=== PATIENT | male | born 1975 | race Caucasian/White ===

== ENCOUNTER 2016-09-07 16:29 | Emergency (ER) | payer SELFPAY ==
[~2016-09-07] VITALS: Wt 87.0 kg
[~2016-09-07 16:29] MED LIST: CHLO25CA9 PO; RANI150T9 PO
[2016-09-07] MEDS ORDERED: FAMOTIDINE 20 MG INJ IV STA (17:03)
[2016-09-07] MEDS ORDERED: SOD CHLORIDE 0.9% 1,000 ML IV STA (17:03)
[2016-09-07] MEDS ORDERED: ONDANSETRON 4 MG INJ IV STA (17:03)
[2016-09-07 17:16] LABS: ADD SCAN DIFF NO
[2016-09-07 17:20] LABS: BASOPHILS % 0.7 % (0.0-2.0); EOSINOPHILS # 0.1 10^3/ul (0.0-0.5); EOSINOPHILS % 2.6 % (0.0-7.0); HEMATOCRIT 47.4 % (42.0-52.0); HEMOGLOBIN 16.2 g/dl (14.0-18.0); LYMPHOCYTES # 1.1 10^3/ul (0.8-2.9); LYMPHOCYTES % 25.4 % (15.0-51.0); MEAN CORPUSCULAR HEMOGLOBIN 27.9 pg (29.0-33.0); MEAN CORPUSCULAR HGB CONC 34.2 g/dl (32.0-37.0); MEAN CORPUSCULAR VOLUME 81.7 fl (82.0-101.0); MEAN PLATELET VOLUME 10.9 fl (7.4-10.4); MONOCYTE # 0.3 10^3/ul (0.3-0.9); MONOCYTES % 6.7 % (0.0-11.0); NEUTROPHIL # 2.7 10^3/ul (1.6-7.5); NEUTROPHILS % 64.6 % (39.0-77.0); PLATELET COUNT 266 10^3/UL (140-415); RED CELL DISTRIBUTION WIDTH 13.3 % (11.5-14.5); WHITE BLOOD COUNT 4.2 10^3/ul (4.8-10.8)
[2016-09-07] MEDS ORDERED: LORAZEPAM 2 MG INJ IV ONE (17:30)
[2016-09-07 17:34] LABS: ALBUMIN 5.3 g/dl (3.3-4.9)
[2016-09-07 17:35] LABS: POTASSIUM 3.5 mmol/L (3.5-5.1)
[2016-09-07 17:37] LABS: CREATININE 0.88 mg/dl (0.61-1.24)
[2016-09-07 17:38] LABS: ALBUMIN/GLOBULIN RATIO 1.43; CALCIUM 10.7 mg/dl (8.4-10.2)
[2016-09-07] MEDS ORDERED: ONDA8TAB14 PO (17:56)
[2016-09-07] MEDS ORDERED: PANT40TA3 PO (17:56)
[2016-09-07] MEDS ORDERED: LORA1TAB PO (17:58)
--- NOTE | 2016-09-07 18:05 | ERD ---
ER Documentation Chief Complaint Date/Time DATE: 09/07/16 TIME: 18:02 Chief Complaint VOMITING SINCE THIS MORNING; STATES HE HAS BEEN DRINKING HEAVILY THIS WEEK HPI This 41-year-old male presents with vomiting since this morning he also has epigastric abdominal pain. Patient has several visits here for alcohol withdrawal gastritis. Denies any fevers, blood, lower abdominal pain. She has been drinking appear for approximately 4 days with minimal food intake. He denies history of seizures. Denies hallucinations, suicidal or homicidal ideations ROS All systems reviewed and are negative except as per history of present illness. Medications Home Meds Active Scripts Lorazepam* (Lorazepam*) 1 Mg Tablet, 1 MG PO Q8, #6 TAB Prov:ATILIO DOE MD 09/07/16 Pantoprazole* (Protonix*) 40 Mg Tablet.dr, 40 MG PO DAILY, #30 TAB Prov:ATILIO DOE MD 09/07/16 Ondansetron (Ondansetron Odt) 8 Mg Tab.rapdis, 8 MG PO Q6H Y for NAUSEA AND/OR VOMITING, #8 TAB Prov:ATILIO DOE MD 09/07/16 Chlordiazepoxide* (Chlordiazepoxide*) 25 Mg Capsule, 25 MG PO Q8 for 6 Days, CAP 50mg PO BID x 2 days 25mg PO BID x 2 days 25mg PO Daily x 2 days THEN STOP Prov:MAYO BAZAN MD 06/08/16 Ranitidine Hcl* (Zantac*) 150 Mg Tablet, 150 MG PO BID Y for EPIGASTRIC PAIN, # 30 TAB Prov:MARGO KNIGHT 05/14/16 Allergies Allergies: Coded Allergies: No Known Allergy (Unverified , 06/08/16) PMhx/Soc Medical and Surgical Hx: pt denies Medical Hx, pt denies Surgical Hx History of Surgery: No Anesthesia Reaction: No Hx Neurological Disorder: Yes Hx Respiratory Disorders: No Hx Cardiac Disorders: No Hx Psychiatric Problems: Yes Hx Miscellaneous Medical Probl: Yes (gastritis ) Hx Alcohol Use: Yes (DAILY, STOPPED FOR 4MTHS) Hx Substance Use: Yes (marijuana) Hx Tobacco Use: No Physical Exam Vitals Vital Signs Date Time Temp Pulse Resp B/P Pulse Ox O2 Delivery O2 Flow Rate FiO2 09/07/16 16:42 99.1 141 18 171/108 96 Physical Exam Const: [] Alert, no apparent distress per Head: Atraumatic Eyes: Normal Conjunctiva ENT: Normal External Ears, Nose and Mouth. Neck: Full range of motion..~ No meningismus. Resp: Clear to auscultation bilaterally Cardio: Regular rate and rhythm, no murmurs Abd: Soft, mild epigastric tenderness. No rebound and no tenderness at McBurney's point no Juares sign., non distended. Normal bowel sounds Skin: No petechiae or rashes Back: No midline or flank tenderness Ext: No cyanosis, or edema Neur: Awake and alert Psych: Normal Mood and Affect Result Diagram: 09/07/16170409/07/161704 Results 24 hrs Laboratory Tests Test 09/07/16 17:05 White Blood Count 4.210^3/ul Red Blood Count 5.8010^6/ul Hemoglobin 16.2g/dl Hematocrit 47.4% Mean Corpuscular Volume 81.7fl Mean Corpuscular Hemoglobin 27.9pg Mean Corpuscular Hemoglobin Concent 34.2g/dl Red Cell Distribution Width 13.3% Platelet Count 33519^3/UL Mean Platelet Volume 10.9fl Neutrophils % 64.6% Lymphocytes % 25.4% Monocytes % 6.7% Eosinophils % 2.6% Basophils % 0.7% Nucleated Red Blood Cells % 0.0/100WBC Neutrophils # 2.710^3/ul Lymphocytes # 1.110^3/ul Monocytes # 0.310^3/ul Eosinophils # 0.110^3/ul Basophils # 0.010^3/ul Nucleated Red Blood Cells # 0.010^3/ul Sodium Level 138mmol/L Potassium Level 3.5mmol/L Chloride Level 97mmol/L Carbon Dioxide Level 25mmol/L Anion Gap 20 Blood Urea Nitrogen 10mg/dl Creatinine 0.88mg/dl Glucose Level 232mg/dl Calcium Level 10.7mg/dl Total Bilirubin 1.0mg/dl Direct Bilirubin 0.00mg/dl Indirect Bilirubin 1.0mg/dl Aspartate Amino Transf (AST/SGOT) 51IU/L Alanine Aminotransferase (ALT/SGPT) 48IU/L Alkaline Phosphatase 100IU/L Total Protein 9.0g/dl Albumin 5.3g/dl Globulin 3.70g/dl Albumin/Globulin Ratio 1.43 Lipase 51U/L Current Medications Medications (Trade) Dose Ordered Sig/Marisol Route PRN Reason Start Time Stop Time Status Last Admin Dose Admin Sodium Chloride (NS) 1,000 ml @ 1,000 mls/hr Q1H STAT IV 09/07/16 17:03 09/07/16 18:02 09/07/16 17:11 Ondansetron HCl (Zofran Inj) 4 mg ONCE STAT IV 09/07/16 17:03 09/07/16 17:05 DC 09/07/16 17:10 Famotidine (Pepcid Iv) 20 mg ONCE STAT IV 09/07/16 17:03 09/07/16 17:05 DC 09/07/16 17:10 Lorazepam (Ativan) 1 mg ONCE ONCE IV 09/07/16 17:30 09/07/16 17:31 DC 09/07/16 17:11 Procedures/MDM CBC shows a white blood cell count of 4.2, otherwise normal. CMP normal and lipase normal except for glucose of 232. Patient was given Zofran 4 mg IV, 1 L normal saline IV and Ativan 1 mg IV. Patient had minimal epigastric tenderness on serial exam. Patient was also given Pepcid 20 mg IV. Patient presents with signs and symptoms of acute alcohol withdrawal and vomiting signs of hyperglycemia consistent with early onset diabetes. He will be treated with instructions to discontinue alcohol use, drink plenty fluids, and was discharged home a short course of Zofran and Protonix and a few Ativan. Patient was referred to local [facility] for recheck of blood sugar further evaluation and management. We will defer initiating treatment for now. Patient has no signs or symptoms of ketoacidosis and his bicarb is normal. No evidence of acute abdomen, or delirium tremens. The patient was stable with no new complaints during the ER course. Clinically, there is no current evidence to suggest meningitis, sepsis, acute abdomen, pneumonia, acute coronary syndrome, pulmonary embolism, or any other emergent condition appearing to require further evaluation or hospitalization. The patient should certainly return for any new or worsening symptoms per the aftercare instructions. They should otherwise follow-up with her primary care doctor for reevaluation this week. Departure Diagnosis: Primary Impression: Hyperglycemia Additional Impression: Alcohol withdrawal Complication of substance-induced condition: uncomplicated Qualified Code: F10.230 - Alcohol withdrawal, uncomplicated Condition: Stable Patient Instructions: Hyperglycemia (High Blood Sugar), Alcohol Withdrawal [facility] Usted se goodman hecho un examen mdico de control que le indica que no est en lynne condicin que requiera tratamiento urgente en el Departamento de Emergencia. Un estudio ms profundo y el tratamiento de monique condicin pueden esperar sin ningn riesgo hasta que usted sea atendida/o en el consultorio de monique mdico o lynne cl bhumika. Es responsabilidad suya arreglar lynne kristian para el seguimiento del verito. MANEJO DE CONDICIONES NO URGENTES EN EL FUTURO 1) Si usted tiene un mdico de atencin primaria: Usted debera llamar a monique mdico de atencin primaria antes de venir al departamento de emergencia. Despus de las horas de consultorio, monique doctor o monique asociado/a est disponible por telfono. El mdico o enfermero de hanna en el servicio telefnico puede asesorarle por quiana medio para atender el problema, o verito contrario se puede programar lynne kristian. 2) Si usted no tiene un mdico de atencin primaria: Llame al mdico o clnica de referencia que aparece abajo joelle las horas de consultorio para hacer lynne kristian para que le vean. CLINICAS: [facility] [phone] [facility] [phone] [facility] [phone] [address] [facility]. [facility] [phone] [address] [facility] [facility] [phone] [address] [facility]. [phone] [address] Additional Instructions: Labs show likely early diabetes. Recheck with primary doctor for further testing and treatment. Recheck for new or worsening symptoms for ATILIO DOE MD Sep 07, 2016 18:05
[2016-09-07 18:36] VITALS: BP 151/92; PULSE 92; RESP 18; TEMP 98.8
== END 2016-09-07 18:35 | disposition home or self-care (01) ==
LOC: FTE 16:29
DX: R73.9 Hyperglycemia, unspecified (principal); F10.230 Alcohol dependence with withdrawal, uncomplicated
CPT/HCPCS: 36415; 80053; 83690; 85025; 96374; 96375; 99284; J2060; J2405; J7030

== ENCOUNTER 2016-10-02 21:08 | Emergency (ER) | payer SELFPAY ==
[~2016-10-02] VITALS: Ht 162.6 cm; Wt 78.5 kg
[~2016-10-02 21:08] MED LIST changes: +LORA1TAB PO; +ONDA8TAB14 PO; +PANT40TA3 PO
[2016-10-02 21:11] VITALS: Ht 162.6 cm; Wt 78.5 kg
[2016-10-02] MEDS ORDERED: FAMOTIDINE 20 MG INJ IV STA (23:39)
[2016-10-02] MEDS ORDERED: SOD CHLORIDE 0.9% 1,000 ML IV STA (23:39)
[2016-10-03] MEDS ORDERED: LORAZEPAM 2 MG INJ IV ONE
[2016-10-03] MEDS ORDERED: THIAMINE 100 MG TAB PO ONE
[2016-10-03] MEDS ORDERED: FOLIC ACID 1 MG TAB PO ONE
[2016-10-03 00:05] LABS: ADD SCAN DIFF NO
[2016-10-03 00:11] LABS: BASOPHILS % 0.4 % (0.0-2.0); EOSINOPHILS # 0.1 10^3/ul (0.0-0.5); HEMOGLOBIN 16.5 g/dl (14.0-18.0); LYMPHOCYTES # 2.6 10^3/ul (0.8-2.9); LYMPHOCYTES % 56.7 % (15.0-51.0); MEAN CORPUSCULAR HEMOGLOBIN 27.6 pg (29.0-33.0); MEAN CORPUSCULAR HGB CONC 33.7 g/dl (32.0-37.0); MEAN CORPUSCULAR VOLUME 81.9 fl (82.0-101.0); MEAN PLATELET VOLUME 11.4 fl (7.4-10.4); MONOCYTE # 0.3 10^3/ul (0.3-0.9); MONOCYTES % 6.2 % (0.0-11.0); NEUTROPHIL # 1.6 10^3/ul (1.6-7.5); NEUTROPHILS % 34.5 % (39.0-77.0); PLATELET COUNT 279 10^3/UL (140-415); RED BLOOD COUNT 5.98 10^6/ul (4.70-6.10); RED CELL DISTRIBUTION WIDTH 13.4 % (11.5-14.5); WHITE BLOOD COUNT 4.6 10^3/ul (4.8-10.8)
[2016-10-03 00:31] LABS: ALBUMIN 4.9 g/dl (3.3-4.9); ALBUMIN/GLOBULIN RATIO 1.25; BILIRUBIN,INDIRECT 0.4 mg/dl (0-1.1); BILIRUBIN,TOTAL 0.4 mg/dl (0.2-1.3); CALCIUM 9.3 mg/dl (8.4-10.2); CREATININE 0.84 mg/dl (0.61-1.24); POTASSIUM 3.9 mmol/L (3.5-5.1); TOTAL PROTEIN 8.8 g/dl (6.1-8.1)
--- NOTE | 2016-10-03 00:54 | RADRPT ---
PROCEDURE: CT Brain without contrast. CLINICAL INDICATION: Trauma TECHNIQUE: A CT of the brain was performed utilizing axial imaging from the skull base through the vertex without IV contrast. Multiplanar reformatted images were made. Images were reviewed on a [employer] workstation. The CTDIvol is 45.01 mGy and the DLP is 720.23 mGycm. One or more the following dose reduction techniques were utilized: Automated exposure control, adjus tment of the mA/ or kV according to patient's size, or use of iterative reconstruction technique. COMPARISON: None FINDINGS: There is no intracranial hemorrhage, mass effect, or midline shift. No extra-axial fluid collection is seen. The ventricles and sulci are normal in size and configuration. The density of the brain is normal, and the denny white matter differentiation appears well-preserved. The visualized paranasal sinuses and osseous structures are grossly unremarkable. IMPRESSION: 1. No evidence of acute intracranial pathology. 2. The brain is normal in appearance. RPTAT: HJES .Patricio Loera MD, MD Date Time Electronically viewed and signed by .Patricio Loera MD, MD on 10/03/2016 00:54 .S/
[2016-10-03] MEDS ORDERED: FAMO-18 PO (01:10)
--- NOTE | 2016-10-03 01:15 | ERD ---
ER Documentation Chief Complaint Date/Time DATE: 10/03/16 TIME: 01:13 Chief Complaint etoh intoxication, vomiting, headache HPI 41-year-old male. The patient states that he has been binge drinking for approximately 1-2 weeks. His last drink was 9 AM this morning. He is describing 1-2 episodes of nonbloody nonbilious emesis, shaking, mild headache. He describes mild epigastric abdominal discomfort. No diarrhea, no hematemesis, no melena. He is unsure if he is fallen or hit his head but does have old contusion to the forehead. ROS All systems reviewed and are negative except as per history of present illness. Medications Home Meds Active Scripts Famotidine* (Pepcid*) 20 Mg Tablet, 20 MG PO BID for 4 Days, TAB Prov:MAYO BAZAN MD 10/03/16 Lorazepam* (Lorazepam*) 1 Mg Tablet, 1 MG PO Q8, #6 TAB Prov:ATILIO DOE MD 09/07/16 Pantoprazole* (Protonix*) 40 Mg Tablet.dr, 40 MG PO DAILY, #30 TAB Prov:ATILIO DOE MD 09/07/16 Ondansetron (Ondansetron Odt) 8 Mg Tab.rapdis, 8 MG PO Q6H Y for NAUSEA AND/OR VOMITING, #8 TAB Prov:ATILIO DOE MD 09/07/16 Chlordiazepoxide* (Chlordiazepoxide*) 25 Mg Capsule, 25 MG PO Q8 for 6 Days, CAP 50mg PO BID x 2 days 25mg PO BID x 2 days 25mg PO Daily x 2 days THEN STOP Prov:MAYO BAZAN MD 06/08/16 Ranitidine Hcl* (Zantac*) 150 Mg Tablet, 150 MG PO BID Y for EPIGASTRIC PAIN, # 30 TAB Prov:MARGO KNIGHT 05/14/16 Allergies Allergies: Coded Allergies: No Known Allergy (Unverified , 06/08/16) PMhx/Soc History of Surgery: No Anesthesia Reaction: No Hx Neurological Disorder: Yes Hx Respiratory Disorders: No Hx Cardiac Disorders: Yes (HTN) Hx Psychiatric Problems: Yes Hx Miscellaneous Medical Probl: Yes (gastritis ) Hx Alcohol Use: Yes (DAILY FOR 1 WEEK 10/02/16) Hx Substance Use: Yes (marijuana) Hx Tobacco Use: No Smoking Status: Never smoker FmHx Family History: No diabetes Physical Exam Vitals Vital Signs Date Time Temp Pulse Resp B/P Pulse Ox O2 Delivery O2 Flow Rate FiO2 10/02/16 23:56 103 17 138/81 96 Room Air 10/02/16 21:11 98.3 110 20 168/93 97 Physical Exam General: Disheveled, smells of alcohol Head: Old contusion to forehead Eyes: Pupils equally reactive, EOM intact ENT: Moist mucous membranes Neck: Supple, no lymphadenopathy Respiratory: Lungs clear bilaterally, no distress Cardiovascular: RRR, no murmurs, rubs, or gallops Abdominal: Soft, non-tender, non-distended, no peritoneal signs : Deferred MSK: No edema, no unilateral swelling, 5/5 strength Neurologic: Alert and oriented, moving all extremities, normal speech, no focal weakness, no cerebellar signs, slight tremor Skin: No rash Psych: Normal mood Result Diagram: 10/02/16 2350 10/02/16 2350 Results 24 hrs Laboratory Tests Test 10/02/16 23:50 White Blood Count 4.610^3/ul Red Blood Count 5.9810^6/ul Hemoglobin 16.5g/dl Hematocrit 49.0% Mean Corpuscular Volume 81.9fl Mean Corpuscular Hemoglobin 27.6pg Mean Corpuscular Hemoglobin Concent 33.7g/dl Red Cell Distribution Width 13.4% Platelet Count 31181^3/UL Mean Platelet Volume 11.4fl Neutrophils % 34.5% Lymphocytes % 56.7% Monocytes % 6.2% Eosinophils % 2.0% Basophils % 0.4% Nucleated Red Blood Cells % 0.0/100WBC Neutrophils # 1.610^3/ul Lymphocytes # 2.610^3/ul Monocytes # 0.310^3/ul Eosinophils # 0.110^3/ul Basophils # 0.010^3/ul Nucleated Red Blood Cells # 0.010^3/ul Sodium Level 144mmol/L Potassium Level 3.9mmol/L Chloride Level 106mmol/L Carbon Dioxide Level 23mmol/L Anion Gap 19 Blood Urea Nitrogen 9mg/dl Creatinine 0.84mg/dl Glucose Level 113mg/dl Calcium Level 9.3mg/dl Total Bilirubin 0.4mg/dl Direct Bilirubin 0.00mg/dl Indirect Bilirubin 0.4mg/dl Aspartate Amino Transf (AST/SGOT) 52IU/L Alanine Aminotransferase (ALT/SGPT) 55IU/L Alkaline Phosphatase 106IU/L Total Protein 8.8g/dl Albumin 4.9g/dl Globulin 3.90g/dl Albumin/Globulin Ratio 1.25 Lipase 51U/L Current Medications Medications (Trade) Dose Ordered Sig/Marisol Route PRN Reason Start Time Stop Time Status Last Admin Dose Admin Sodium Chloride (NS) 1,000 ml @ 1,000 mls/hr Q1H STAT IV 10/02/16 23:39 10/03/16 00:38 DC 10/03/16 00:02 Famotidine (Pepcid Iv) 20 mg ONCE STAT IV 10/02/16 23:39 10/02/16 23:41 DC 10/03/16 00:02 Lorazepam (Ativan) 1 mg ONCE ONCE IV 10/03/16 00:00 10/03/16 00:01 DC 10/03/16 00:02 Thiamine HCl (Vitamin B1) 100 mg ONCE ONCE PO 10/03/16 00:00 10/03/16 00:01 DC 10/03/16 00:02 Folic Acid (Folic Acid) 1 mg ONCE ONCE PO 10/03/16 00:00 10/03/16 00:01 DC 10/03/16 00:02 Procedures/MDM EKG, MONITORS, & DIAGNOSTIC IMAGING: CT brain: No acute intracranial process per radiology read LAB INTERPRETATION: No evidence of alcoholic cirrhosis or pancreatitis MEDICAL DECISION MAKING: The patient presents with mild signs and symptoms consistent with alcohol withdrawal, likely alcoholic gastritis. Lower concern for acute pancreatitis. Patient also has subacute injury to his head with a headache. CT brain to rule out traumatic subdural hemorrhage would be appropriate. ER COURSE: The patient was given IV fluids, Ativan, thiamine, folic acid, Pepcid. He is improved symptoms and is now sleeping. Laboratory testing does not show evidence of endorgan dysfunction. CT imaging is negative. Patient does not appear to be committed to cessation of alcohol abuse. Therefore, benzodiazepine treatment would be inappropriate as an outpatient. Substance abuse social resources provided to the patient. Patient is steady on his feet and safe for discharge. I kept the patient and/or family informed of laboratory and diagnostic imaging results throughout the emergency room course. DISPOSITION PLAN: We discussed follow up with the patient's primary care doctor within 24 to 48 hours as needed. We also discussed return to the emergency room for worsening symptoms or worsening condition. Outpatient referral: None required Discharge Medications: Pepcid Departure Diagnosis: Primary Impression: Alcohol withdrawal Complication of substance-induced condition: uncomplicated Qualified Code: F10.230 - Alcohol withdrawal, uncomplicated Additional Impression: Gastritis Gastritis type: alcoholic Chronicity: acute Gastritis bleeding: without bleeding Qualified Code: K29.20 - Acute alcoholic gastritis without hemorrhage Condition: Stable Patient Instructions: Alcohol Withdrawal Referrals: [facility] Usted se goodman hecho un examen mdico de control que le indica que no est en lynne condicin que requiera tratamiento urgente en el Departamento de Emergencia. Un estudio ms profundo y el tratamiento de monique condicin pueden esperar sin ningn riesgo hasta que usted sea atendida/o en el consultorio de monique mdico o lynne cl bhumika. Es responsabilidad suya arreglar lynne kristian para el seguimiento del verito. MANEJO DE CONDICIONES NO URGENTES EN EL FUTURO 1) Si usted tiene un mdico de atencin primaria: Usted debera llamar a monique mdico de atencin primaria antes de venir al departamento de emergencia. Despus de las horas de consultorio, monique doctor o monique asociado/a est disponible por telfono. El mdico o enfermero de hanna en el servicio telefnico puede asesorarle por quiana medio para atender el problema, o verito contrario se puede programar lynne kristian. 2) Si usted no tiene un mdico de atencin primaria: Llame al mdico o clnica de referencia que aparece abajo joelle las horas de consultorio para hacer lynne kristian para que le vean. CLINICAS: [facility] [phone] [facility] [phone] [facility] [phone] [facility] 915 [phone] [place] [phone] [facility]. [phone] [address] [facility]. [facility] () Usted se goodman hecho un examen mdico de control que le indica que no est en lynne condicin que requiera tratamiento urgente en el Departamento de Emergencia. Un estudio ms profundo y el tratamiento de monique condicin pueden esperar sin ningn riesgo hasta que usted sea atendida/o en el consultorio de monique mdico o lynne cl bhumika. Es responsabilidad suya arreglar lynne kristian para el seguimiento del verito. MANEJO DE CONDICIONES NO URGENTES EN EL FUTURO 1) Si usted tiene un mdico de atencin primaria: Usted debera llamar a monique mdico de atencin primaria antes de venir al departamento de emergencia. Despus de las horas de consultorio, monique doctor o monique asociado/a est disponible por telfono. El mdico o enfermero de hanna en el servicio telefnico puede asesorarle por quiana medio para atender el problema, o verito contrario se puede programar lynne kristian. 2) Si usted no tiene un mdico de atencin primaria: Llame al mdico o condado institucions de referencia que aparece abajo joelle las horas de consultorio para hacer lynne kristian para que le vean. SI USTED NO PUEDE PAGAR PARA GANGA UN MEDICO puede ir a: [facility] [address] [place] [address] [facility] [address] [place] [address] [facility] [address] [place] [address] [facility] [address] [place] [address] Additional Instructions: Call your primary care doctor TOMORROW for an appointment during the next 1 WEEK.Tell the personal secretary that you were referred from this facility.See the doctor sooner or return here if your condition worsens before your appointment time. MAYO BAZAN MD Oct 03, 2016 01:15
[2016-10-03 02:28] VITALS: BP 131/71; PULSE 106; RESP 16
== END 2016-10-03 02:30 | disposition home or self-care (01) ==
LOC: E/R 21:08
DX: F10.230 Alcohol dependence with withdrawal, uncomplicated (principal); K29.20 Alcoholic gastritis without bleeding; I10 Essential (primary) hypertension; R51 Headache
CPT/HCPCS: 36415; 70450; 80053; 83690; 85025; 96374; 96375; 99285; J2060; J7030

== ENCOUNTER 2016-12-11 21:05 | Emergency (ER) | payer MEDICAID ==
[~2016-12-11] VITALS: Ht 170.2 cm; Wt 76.0 kg
[~2016-12-11 21:05] MED LIST changes: +FAMO-18 PO
[2016-12-11 21:45] VITALS: Ht 170.2 cm; Wt 76.0 kg
[2016-12-11] MEDS ORDERED: ONDANSETRON 4 MG INJ IV STA (22:04)
[2016-12-11] MEDS ORDERED: LIDOCAINE/MYLANTA 40 ML BTL PO ONE (22:30)
[2016-12-11] MEDS ORDERED: FAMOTIDINE 20 MG INJ IV ONE (22:30)
[2016-12-11] MEDS ORDERED: THIAMINE 100 MG TAB PO ONE (22:30)
[2016-12-11] MEDS ORDERED: LORAZEPAM 2 MG INJ IV ONE (22:30)
[2016-12-11] MEDS ORDERED: SOD CHLORIDE 0.9% 1,000 ML IV ONE (22:30)
[2016-12-11 22:32] LABS: ADD SCAN DIFF NO
[2016-12-11 22:35] LABS: BASOPHILS % 0.9 % (0.0-2.0); EOSINOPHILS # 0.1 10^3/ul (0.0-0.5); EOSINOPHILS % 1.1 % (0.0-7.0); HEMOGLOBIN 16.7 g/dl (14.0-18.0); LYMPHOCYTES # 2.5 10^3/ul (0.8-2.9); LYMPHOCYTES % 54.9 % (15.0-51.0); MEAN CORPUSCULAR HEMOGLOBIN 27.2 pg (29.0-33.0); MEAN CORPUSCULAR HGB CONC 34.1 g/dl (32.0-37.0); MEAN CORPUSCULAR VOLUME 79.7 fl (82.0-101.0); MEAN PLATELET VOLUME 10.6 fl (7.4-10.4); MONOCYTE # 0.2 10^3/ul (0.3-0.9); MONOCYTES % 4.9 % (0.0-11.0); NEUTROPHIL # 1.7 10^3/ul (1.6-7.5); NEUTROPHILS % 38.2 % (39.0-77.0); PLATELET COUNT 326 10^3/UL (140-415); RED BLOOD COUNT 6.15 10^6/ul (4.70-6.10); RED CELL DISTRIBUTION WIDTH 13.5 % (11.5-14.5); WHITE BLOOD COUNT 4.5 10^3/ul (4.8-10.8)
[2016-12-11 22:46] LABS: ADD UMIC YES; UR ASCORBIC ACID NEGATIVE (NEGATIVE); UR BILIRUBIN (Dip) NEGATIVE (NEGATIVE); UR BLOOD (Dip) 1+ mg/dL (NEGATIVE); UR CLARITY CLEAR (CLEAR); UR COLOR YELLOW (YELLOW); UR GLUCOSE (Dip) NEGATIVE (NEGATIVE); UR KETONES (Dip) NEGATIVE (NEGATIVE); UR LEUKOCYTE ESTERASE (Dip) NEGATIVE Leu/ul (NEGATIVE); UR NITRITE (Dip) NEGATIVE (NEGATIVE); UR RBC 0 /HPF (0-5); UR TOTAL PROTEIN (Dip) 1+ mg/dl (NEGATIVE); UR UROBILINOGEN (Dip) NEGATIVE (NEGATIVE)
[2016-12-11 23:27] LABS: ALBUMIN 5.3 g/dl (3.3-4.9); ALBUMIN/GLOBULIN RATIO 1.51; BILIRUBIN,INDIRECT 0.5 mg/dl (0-1.1); BILIRUBIN,TOTAL 0.5 mg/dl (0.2-1.3); CALCIUM 10.1 mg/dl (8.4-10.2); CREATININE 0.96 mg/dl (0.61-1.24); POTASSIUM 4.4 mmol/L (3.5-5.1); TOTAL PROTEIN 8.8 g/dl (6.1-8.1)
[2016-12-12] MEDS ORDERED: ONDA-43 PO (00:07)
[2016-12-12] MEDS ORDERED: FAMO20TA18 PO (00:08)
--- NOTE | 2016-12-12 00:21 | ERD ---
ER Documentation Chief Complaint Date/Time DATE: 12/12/16 TIME: 00:12 Chief Complaint Abd pain x 1 week, n/v/d HPI This is a 41-year-old male that presents to the ER with a history of alcohol abuse who has been drinking over the last 7 days. Patient's last drink was this morning at 11 AM. Patient began to have burning epigastric pain with nonbilious nonbloody emesis and diarrhea that started yesterday. Patient states he has not eaten because he has been drinking so much alcohol. Patient states he has been having some shaking tremors however denies seizure, loss of consciousness. Patient denies any falls or any head trauma. Patient states that he tried going to Alcoholics Anonymous however stated they treated him poorly. ROS 12 point review of systems was done, all negative except per HPI. Medications Home Meds Active Scripts Famotidine* (Famotidine*) 20 Mg Tablet, 20 MG PO BID, #60 TAB Prov:DMITRY MOLINA 12/12/16 Ondansetron Hcl* (Zofran*) 4 Mg Tab, 4 MG PO Q4H Y for NAUSEA AND OR VOMITING, # 30 TAB Prov:DMITRY MOLINA 12/12/16 Famotidine* (Pepcid*) 20 Mg Tablet, 20 MG PO BID for 4 Days, TAB Prov:MAYO BAZAN MD 10/03/16 Lorazepam* (Lorazepam*) 1 Mg Tablet, 1 MG PO Q8, #6 TAB Prov:ATILIO DOE MD 09/07/16 Pantoprazole* (Protonix*) 40 Mg Tablet.dr, 40 MG PO DAILY, #30 TAB Prov:ATILIO DOE MD 09/07/16 Ondansetron (Ondansetron Odt) 8 Mg Tab.rapdis, 8 MG PO Q6H Y for NAUSEA AND/OR VOMITING, #8 TAB Prov:ATILIO DOE MD 09/07/16 Chlordiazepoxide* (Chlordiazepoxide*) 25 Mg Capsule, 25 MG PO Q8 for 6 Days, CAP 50mg PO BID x 2 days 25mg PO BID x 2 days 25mg PO Daily x 2 days THEN STOP Prov:MAYO BAZAN MD 06/08/16 Ranitidine Hcl* (Zantac*) 150 Mg Tablet, 150 MG PO BID Y for EPIGASTRIC PAIN, # 30 TAB Prov:MARGO KNIGHT 05/14/16 Allergies Allergies: Coded Allergies: No Known Allergy (Unverified , 12/11/16) PMhx/Soc History of Surgery: No Anesthesia Reaction: No Hx Neurological Disorder: Yes Hx Respiratory Disorders: No Hx Cardiac Disorders: Yes (HTN) Hx Psychiatric Problems: Yes (ETOH ABUSE; ANXIETY; DEPRESSION) Hx Miscellaneous Medical Probl: Yes (gastritis ) Hx Alcohol Use: Yes (DAILY FOR 1 WEEK 10/02/16) Hx Substance Use: Yes (marijuana) Hx Tobacco Use: No Smoking Status: Never smoker Physical Exam Vitals Vital Signs Date Time Temp Pulse Resp B/P Pulse Ox O2 Delivery O2 Flow Rate FiO2 12/11/16 21:45 97.5 120 18 142/96 94 Physical Exam GENERAL: The patient is well developed and appropriate for usual state of health , in no apparent distress. Patient is not currently intoxicated. Patient does not have a tremor. HEENT: Atraumatic. Conjunctivae are pink. Pupils equal, round, and reactive to light. No icterus. Extraocular muscles are grossly intact. Moist mucous membranes. CHEST: Clear to auscultation bilaterally. There are no rales, wheezes or rhonchi. HEART: Regular rate and rhythm. No murmurs, clicks, rubs or gallops. ABDOMEN: Soft, nontender and nondistended. Good bowel sounds. No rebound or guarding. No gross peritonitis. No gross organomegaly or masses. No Juares sign or McBurney point tenderness. BACK: No midline or flank tenderness. NEURO: Alert and oriented. Cranial nerves II through XII are intact. Moving all extremities, normal speech, no focal weakness, no cerebellar signs. SKIN: There is no apparent rash or petechia. The skin is warm and dry. No jaundice Result Diagram: 12/11/16222412/11/162224 Results 24 hrs Laboratory Tests Test 12/11/16 22:20 12/11/16 22:25 Urine Color YELLOW Urine Clarity CLEAR Urine pH 6.0 Urine Specific Lynn 1.010 Urine Ketones NEGATIVEmg/dL Urine Nitrite NEGATIVEmg/dL Urine Bilirubin NEGATIVEmg/dL Urine Urobilinogen NEGATIVEmg/dL Urine Leukocyte Esterase NEGATIVELeu/ul Urine Microscopic RBC 0/HPF Urine Microscopic WBC 0/HPF Urine Hemoglobin 1+mg/dL Urine Glucose NEGATIVEmg/dL Urine Total Protein 1+mg/dl White Blood Count 4.510^3/ul Red Blood Count 6.1510^6/ul Hemoglobin 16.7g/dl Hematocrit 49.0% Mean Corpuscular Volume 79.7fl Mean Corpuscular Hemoglobin 27.2pg Mean Corpuscular Hemoglobin Concent 34.1g/dl Red Cell Distribution Width 13.5% Platelet Count 22433^3/UL Mean Platelet Volume 10.6fl Neutrophils % 38.2% Lymphocytes % 54.9% Monocytes % 4.9% Eosinophils % 1.1% Basophils % 0.9% Nucleated Red Blood Cells % 0.0/100WBC Neutrophils # 1.710^3/ul Lymphocytes # 2.510^3/ul Monocytes # 0.210^3/ul Eosinophils # 0.110^3/ul Basophils # 0.010^3/ul Nucleated Red Blood Cells # 0.010^3/ul Sodium Level 148mmol/L Potassium Level 4.4mmol/L Chloride Level 101mmol/L Carbon Dioxide Level 24mmol/L Anion Gap 27 Blood Urea Nitrogen 9mg/dl Creatinine 0.96mg/dl Glucose Level 108mg/dl Calcium Level 10.1mg/dl Total Bilirubin 0.5mg/dl Direct Bilirubin 0.00mg/dl Indirect Bilirubin 0.5mg/dl Aspartate Amino Transf (AST/SGOT) 59IU/L Alanine Aminotransferase (ALT/SGPT) 62IU/L Alkaline Phosphatase 96IU/L Total Protein 8.8g/dl Albumin 5.3g/dl Globulin 3.50g/dl Albumin/Globulin Ratio 1.51 Lipase 64U/L Current Medications Medications (Trade) Dose Ordered Sig/Marisol Route PRN Reason Start Time Stop Time Status Last Admin Dose Admin Sodium Chloride (NS) 1,000 ml @ 1,000 mls/hr Q1H ONCE IV 12/11/16 22:30 12/11/16 23:29 DC 12/11/16 22:39 Ondansetron HCl (Zofran Inj) 4 mg ONCE STAT IV 12/11/16 22:04 12/11/16 22:08 DC 12/11/16 22:39 Famotidine (Pepcid Iv) 20 mg ONCE ONCE IV 12/11/16 22:30 12/11/16 22:31 DC 12/11/16 22:39 Thiamine HCl (Vitamin B1) 100 mg ONCE ONCE PO 12/11/16 22:30 12/11/16 22:31 DC 12/11/16 23:06 Miscellaneous Medication (Gi Cocktail (2)) 40 ml ONCE ONCE PO 12/11/16 22:30 12/11/16 22:31 DC 12/11/16 22:39 Lorazepam (Ativan) 1 mg ONCE ONCE IV 12/11/16 22:30 12/11/16 22:31 DC 12/11/16 22:39 Procedures/MDM EKG was taken [address] elevation no T-wave inversion. EKG was read by my supervising physician . This is a 41-year-old male presents to the ER with evidence of early alcohol withdrawal symptoms. Patient does have tachycardia and hypertension and he states that he had a mild tremor earlier today even though the tremor is not noted on physical examination. Lab work was drawn and there was no evidence of alcoholic hepatitis or pancreatitis. Patient is neurologically intact with no focal neurological deficits, he also does not have a history of trauma I do not believe that CT head is needed at this time. Patient felt significantly better after treatment in the ER. Patient has an extensive history of alcohol abuse, do not believe that Librium is necessary at this time as patient comes to his ER often for alcohol withdrawal. She will be sent home with Zofran and with famotidine. He was advised to try going to Alcoholics Anonymous once again as his alcoholism is causing him a lot of problems. Patient states that he would go to Alcoholics Anonymous again and try to stop drinking. Patient is to follow -up with his primary care doctor within 1-2 days return to ER sooner if symptoms worsen. My medical decision making shared with the patient understands and agrees with plan Departure Diagnosis: Primary Impression: Alcohol withdrawal Condition: Stable Patient Instructions: Alcohol Withdrawal Additional Instructions: Llame al doctor LINDA y amilcar lynne RADHA PARA DENTRO DE 1-2 LANDERS.Dgale a la secretaria que nosotros le instruimos hacer esta radha.Avise o llame si monique condicin se empeora antes de la radha. Regresa aqui si peor o no mejor. DMITRY MOLINA Dec 12, 2016 00:20
[2016-12-12 03:25] VITALS: BP 128/83; PULSE 100; RESP 20
== END 2016-12-12 03:40 | disposition home or self-care (01) ==
LOC: FTE 21:05
DX: F10.239 Alcohol dependence with withdrawal, unspecified (principal); I10 Essential (primary) hypertension; R11.2 Nausea with vomiting, unspecified
CPT/HCPCS: 80053; 81001; 83690; 85025; 93005; 96374; 96375; J2060; J2405; J7030; Z7502; Z7610